=== PATIENT | male | born 1965 | race Caucasian/White ===

== ENCOUNTER 2021-12-03 18:40 | Emergency (ER) | payer SELFPAY ==
[~2021-12-03] VITALS: Ht 177.8 cm; Wt 74.0 kg
[2021-12-03] MEDS ORDERED: TETANUS, DIPHTHERIA, PERTUSSIS VAC/PF 0.5ML (>10YR OLD) IM ONE (19:15)
[2021-12-03] MEDS ORDERED: BACITRACIN ZINC OINT UDPKT TOP ONE (19:15)
[2021-12-03] MEDS ORDERED: LIDOCAINE HCL/EPINEPHRINE 1%-EPI 1:100,000 20 ML VIAL INFIL ONE (19:15)
[2021-12-03] MEDS ORDERED: IBUPROFEN 600MG TABLET PO ONE (19:15)
[2021-12-03] MEDS ORDERED: LIDOCAINE HCL/EPINEPHRINE 1%-EPI 1:100,000 30 ML VIAL INFIL NR (19:30)
[2021-12-03] MEDS ORDERED: IBUP-2028 MT (22:38)
[2021-12-03 23:10] VITALS: BP 138/84
== END 2021-12-03 23:35 | disposition home or self-care (01) ==
LOC: ER 18:40
DX: S01.01XA Laceration without foreign body of scalp, initial encounter (principal); S40.812A Abrasion of left upper arm, initial encounter; S50.311A Abrasion of right elbow, initial encounter; Y08.89XA Assault by other specified means, initial encounter; Y93.89 Activity, other specified; Y92.89 Other specified places as the place of occurrence of the external cause
CPT/HCPCS: 12002; 73030; 73060; 90471; 90715; 99284; J3490

== ENCOUNTER 2023-08-08 13:04 | Emergency (ER) | payer MEDICAID ==
[~2023-08-08] VITALS: Ht 162.6 cm; Wt 73.0 kg
[~2023-08-08 13:04] MED LIST: LEVO-65 MT
[2023-08-08 13:11] VITALS: O2SAT 97
[2023-08-08] MEDS: ACETAMINOPHEN 500MG TABLET PO ONE (13:30)
[2023-08-08 14:33] LABS: HEMATOCRIT 37.9 % (42.0-52.0); HEMOGLOBIN 12.7 g/dL (14.0-18.0); MEAN CORPUSCULAR HEMOGLOBIN 31.4 pg (28.0-32.0); MEAN CORPUSCULAR HGB CONC 33.5 g/dL (31.0-37.0); MEAN CORPUSCULAR VOLUME 93.6 fL (80.0-94.0); PLATELET 187 x1000/uL (130-400); RED BLOOD CELL COUNT 4.05 mill/uL (4.7-6.1); RED CELL DISTRIBUTION WIDTH 15.8 % (11.6-14.6)
[2023-08-08 14:34] LABS: CHLORIDE 103 mEq/L (98-107); POTASSIUM 3.6 mEq/L (3.5-5.1); SODIUM 134 mEq/L (136-145)
[2023-08-08 14:35] LABS: CALCIUM 8.7 mg/dL (8.7-10.4); CARBON DIOXIDE 25 mEq/L (21-32)
[2023-08-08 14:40] LABS: CREATININE 0.8 mg/dL (0.6-1.3); ETHANOL BLOOD 169 mg/dL (<10); GLUCOSE 90 mg/dL (70-105); UREA NITROGEN BLOOD 9 mg/dL (9-23)
[2023-08-08] MEDS ORDERED: ACETAMINOPHEN 500MG TABLET PO NR (15:45)
[2023-08-08] MEDS: KETOROLAC 30MG/ML VIAL IV SCH (17:00)
[2023-08-08] MEDS ORDERED: IBUP-2028 MT (17:03)
[2023-08-08 18:00] VITALS: BP 127/65; PULSE 89; RESP 17; TEMP 97.6
== END 2023-08-08 19:00 | disposition home or self-care (01) ==
LOC: ER 13:04
DX: M79.604 Pain in right leg (principal)
CPT/HCPCS: 80048; 80320; 85027; 36415; 73610; 73620; 70450; 71260; 72125; 74177; 96374; 99285; J1885; Z7610 ×2; G0480

== ENCOUNTER 2025-01-28 22:54 | Inpatient (IN) | payer MEDICAID ==
[~2025-01-28] VITALS: Ht 170.2 cm; Wt 61.7 kg
[~2025-01-28 22:54] MED LIST changes: +ALBU18HF2 IH; +APIX5TAB MT; +ASCO500C18 PO; +DOCU-138 PO; -LEVO-65 MT; +OLAN2.5T77 GT
[2025-01-28 23:02] VITALS: PULSE 105; RESP 25; O2SAT 95
[2025-01-28 23:12] VITALS: O2SAT 98
[2025-01-28] MEDS: SODIUM CHLORIDE 0.9% 1,000 ML IV ONE (23:28)
[2025-01-28] MEDS: PIPERACILLIN/TAZO 3.375G/50ML 50 ML IV ONE (23:28)
[2025-01-28] MEDS: ACETAMINOPHEN 325MG TABLET PEG ONE (23:28)
[2025-01-28 23:31] LABS: HEMATOCRIT. 34.6 % (42.0-52.0); HEMOGLOBIN. 11.0 g/dL (14.0-18.0); MEAN PLATELET VOLUME 9.3 fl (7.4-10.4); PLATELET 289 x1000/uL (130-400); RED BLOOD CELL COUNT 3.89 mill/uL (4.7-6.1); RED CELL DISTRIBUTION WIDTH 17.7 % (11.6-14.6)
[2025-01-28 23:41] LABS: INR 1.1
[2025-01-28 23:44] LABS: CREATININE 0.9 mg/dL (0.6-1.3); UREA NITROGEN BLOOD 51 mg/dL (9-23)
[2025-01-28 23:46] LABS: ASPARTATE AMINOTRANSFERASE 20 IU/L (<34); BILIRUBIN DIRECT 0.2 mg/dL (<=3.0); TROPONIN I HIGH SENSITIVITY 12 ng/L (3.0-53)
[2025-01-28 23:47] LABS: BILIRUBIN TOTAL 0.4 mg/dL (0.1-1.0); PROTEIN TOTAL 8.2 g/dL (6.0-8.3)
[2025-01-29] VITALS (19 sets, daily range): BP systolic 103–164; BP diastolic 61–83; PULSE 81–106; RESP 16–38; TEMP 36.3–38.1; O2SAT 96–100
[2025-01-29] MEDS: VANCOMYCIN 1G PREMIX 200 ML IV ONE (00:06)
[2025-01-29 00:22] LABS: CLARITY URINE CLOUDY (CLEAR); COLOR URINE YELLOW (YELLOW); GLUCOSE URINE NEGATIVE (NEGATIVE); KETONES URINE NEGATIVE (NEGATIVE); LEUKOCYTE ESTERASE URINE 2+ (NEGATIVE); NITRITE URINE POSITIVE (NEGATIVE); OCCULT BLOOD URINE 3+ (NEGATIVE); PH URINE 6.5 (4.5-8.0); PROTEIN URINE 1+ (NEGATIVE); SPECIFIC GRAVITY URINE 1.019 (1.005-1.030); UROBILINOGEN URINE 1.0 E.U./dL (0.2-1.0)
[2025-01-29] MEDS ORDERED: MIDODRINE HCL 5MG TABLET PO PRN ×2 (00:45→21:00)
[2025-01-29] MEDS ORDERED: ONDANSETRON HCL 4MG/2ML INJ IV PRN (00:45)
[2025-01-29] MEDS ORDERED: DEXTROSE 50% WATER 50ML SYRINGE IV PRN (00:45)
[2025-01-29] MEDS ORDERED: DOCUSATE SODIUM 100MG CAPSULE GT PRN (00:45)
[2025-01-29] MEDS ORDERED: BLOOD SUGAR DIAGNOSTIC STRIP TEST SCH (00:45)
[2025-01-29] MEDS ORDERED: MIDO5TAB4 MT (04:01)
[2025-01-29] MEDS ORDERED: TOPUD PO (04:01)
[2025-01-29 05:06] LABS: BAND% 1.0 % (1.0-6.0); LYMPHOCYTES % MANUAL 10.0 % (20.0-50.0); MONOCYTES % MANUAL 4.0 % (2.0-8.0); NEUTROPHILS % MANUAL 85.0 % (45.0-75.0); PLATELET ESTIMATE NORMAL
[2025-01-29 05:45] LABS: SQUAMOUS EPITHELIAL CELL URINE FEW /lpf (RARE/1+)
[2025-01-29 05:46] LABS: RBC URINE TNTC /hpf (0-2)
[2025-01-29 05:47] LABS: BACTERIA URINE 2+
[2025-01-29] MEDS: PIPERACILLIN/TAZO 3.375G/50ML 50 ML IV SCH (06:03)
[2025-01-29] MEDS: ACETAMINOPHEN 650MG/20.3ML UDC GT PRN (06:04)
[2025-01-29] MEDS ORDERED: GUAIFENESIN-DM 200MG-20MG/10ML UDC GT SCH (06:15)
[2025-01-29] MEDS: BLOOD SUGAR DIAGNOSTIC STRIP TEST SCH (07:45)
[2025-01-29 07:47] LABS: BASOPHILS % 0.2 % (0.0-2.0); EOSINOPHILS % 0.4 % (0.0-5.0); HEMATOCRIT. 32.1 % (42.0-52.0); HEMOGLOBIN. 10.0 g/dL (14.0-18.0); LYMPHOCYTES % 10.1 % (20.0-50.0); MEAN PLATELET VOLUME 9.1 fl (7.4-10.4); MONOCYTES % 6.1 % (2.0-8.0); NEUTROPHILS % 83.2 % (40.0-76.0); PLATELET 246 x1000/uL (130-400); RED BLOOD CELL COUNT 3.59 mill/uL (4.7-6.1); RED CELL DISTRIBUTION WIDTH 17.6 % (11.6-14.6)
[2025-01-29 07:59] LABS: CREATINE KINASE MB FRACTION 1.2 ng/mL (0.5-3.6); CREATININE 0.7 mg/dL (0.6-1.3); TRIGLYCERIDE 34 mg/dL (0-150); UREA NITROGEN BLOOD 38 mg/dL (9-23)
[2025-01-29 08:00] LABS: ASPARTATE AMINOTRANSFERASE 18 IU/L (<34); LDL CHOLESTEROL 41 mg/dL (5-100)
[2025-01-29] MEDS: MIDODRINE HCL 5MG TABLET PO SCH (08:00)
[2025-01-29] MEDS: INSULIN LISPRO 100 UNITS/ML SUBCUT SCH (08:00)
[2025-01-29 08:01] LABS: BILIRUBIN TOTAL 0.5 mg/dL (0.1-1.0); PHOSPHORUS 2.7 mg/dL (2.5-4.9); PROTEIN TOTAL 7.6 g/dL (6.0-8.3)
[2025-01-29 08:09] LABS: TROPONIN I HIGH SENSITIVITY 8 ng/L (3.0-53)
[2025-01-29 08:13] LABS: T4 FREE 1.12 ng/dL (0.89-1.76)
[2025-01-29] MEDS: IPRATROPIUM/ALBUTEROL 0.5-3(2.5)MG/3ML NEB HHN PRN (08:22)
[2025-01-29] MEDS: PANTOPRAZOLE SODIUM 40 MG/VIAL IV SCH (08:39)
[2025-01-29] MEDS: VANCOMYCIN 1GM/200ML PMX (BAXTER) IV SCH (08:40)
[2025-01-29] MEDS: GUAIFENESIN-DM 200MG-20MG/10ML UDC GT SCH (08:40)
[2025-01-29] MEDS: AZITHROMYCIN 500MG/250ML 250 ML IV SCH (08:40)
[2025-01-29] MEDS: ENOXAPARIN 40MG/0.4ML SYR SUBCUT SCH (08:42)
[2025-01-29] MEDS: ACETYLCYSTEINE 200MG/ML 20% VIAL 4ML INH SCH (13:11)
[2025-01-29 16:24] LABS: TROPONIN I HIGH SENSITIVITY 8 ng/L (3.0-53)
[2025-01-29 16:27] LABS: CREATINE KINASE MB FRACTION 0.9 ng/mL (0.5-3.6)
[2025-01-30] VITALS (25 sets, daily range): BP systolic 95–154; BP diastolic 54–94; PULSE 77–109; RESP 20–33; TEMP 36–37.1; O2SAT 95–100
[2025-01-30 07:58] LABS: CREATININE 0.6 mg/dL (0.6-1.3); UREA NITROGEN BLOOD 20 mg/dL (9-23)
[2025-01-30 09:53] LABS: BG BASE EXCESS 3.0 mmol/L (-2.0-3.0); BG CARBOXYHEMOGLOBIN 0.3 % (0.5-1.5); BG DEOXYHEMOGLOBIN 0.9 % (0.0-5.0); BG FRACTION INSPIRED OXYGEN 40; BG HCO3 ACT 26.1 mmol/L (21.0-28.0); BG METHEMOGLOBIN 0.1 % (0.5-1.5); BG OXYGEN SATURATION 99.1 % (94.0-98.0); BG OXYHEMOGLOBIN 98.7 % (94.0-98.0); BG PCO2 34.4 mmHg (35.0-48.0); BG PEEP (cmH2O) 5.0 cmH2O; BG PH 7.498 (7.350-7.450); BG PO2 147.2 mmHg (83.0-108.0); BG SAMPLE SITE RIGHT RADIAL; BG TIDAL VOLUME(mL) 450.0 mL; BG TOTAL HEMOGLOBIN 10.2 g/dL (13.5-17.5); BG VENT MODE VENT - SIMV; BG VENT RATE 16.0 set
[2025-01-30 12:55] LABS: BASOPHILS % 0.2 % (0.0-2.0); CREATININE 0.6 mg/dL (0.6-1.3); EOSINOPHILS % 2.1 % (0.0-5.0); HEMATOCRIT. 28.6 % (42.0-52.0); HEMOGLOBIN. 9.2 g/dL (14.0-18.0); LYMPHOCYTES % 15.5 % (20.0-50.0); MEAN PLATELET VOLUME 9.9 fl (7.4-10.4); MONOCYTES % 11.2 % (2.0-8.0); NEUTROPHILS % 71.0 % (40.0-76.0); PLATELET 213 x1000/uL (130-400); RED BLOOD CELL COUNT 3.21 mill/uL (4.7-6.1); RED CELL DISTRIBUTION WIDTH 16.7 % (11.6-14.6); UREA NITROGEN BLOOD 21 mg/dL (9-23)
[2025-01-30 12:57] LABS: ASPARTATE AMINOTRANSFERASE 22 IU/L (<34); BILIRUBIN DIRECT 0.1 mg/dL (<=3.0); BILIRUBIN TOTAL 0.3 mg/dL (0.1-1.0); PHOSPHORUS 2.2 mg/dL (2.5-4.9); PROTEIN TOTAL 7.1 g/dL (6.0-8.3)
[2025-01-30 13:00] LABS: INR 1.1
[2025-01-30] MEDS: FERROUS SULFATE 325MG TABLET PO SCH (14:06)
[2025-01-30] MEDS: VANCOMYCIN 750MG/150ML (BAXTER) IV SCH (14:06)
[2025-01-30] MEDS: MIDODRINE HCL 5MG TABLET PO PRN (14:06)
[2025-01-30] MEDS: ATORVASTATIN CALCIUM 40MG TABLET PO SCH (22:37)
[2025-01-31] VITALS (17 sets, daily range): BP systolic 84–119; BP diastolic 63–79; PULSE 67–115; RESP 16–63; TEMP 36.7–38.1; O2SAT 95–100
[2025-01-31] MEDS ORDERED: IOHEXOL-350 100 ML BOTTLE ONE (05:05)
[2025-01-31 06:20] LABS: VITAMIN B12 SERUM 1201 pg/mL (211-911)
[2025-01-31 06:23] LABS: CREATININE 0.6 mg/dL (0.6-1.3)
[2025-01-31 06:24] LABS: UREA NITROGEN BLOOD 16 mg/dL (9-23)
[2025-01-31 06:36] LABS: BASOPHILS % 0.3 % (0.0-2.0); EOSINOPHILS % 1.2 % (0.0-5.0); HEMATOCRIT. 29.5 % (42.0-52.0); HEMOGLOBIN. 9.5 g/dL (14.0-18.0); LYMPHOCYTES % 15.0 % (20.0-50.0); MEAN PLATELET VOLUME 10.0 fl (7.4-10.4); MONOCYTES % 10.0 % (2.0-8.0); NEUTROPHILS % 73.5 % (40.0-76.0); PLATELET 194 x1000/uL (130-400); RED BLOOD CELL COUNT 3.32 mill/uL (4.7-6.1); RED CELL DISTRIBUTION WIDTH 17.1 % (11.6-14.6)
[2025-01-31 06:56] LABS: FOLIC ACID (FOLATE) SERUM 34.14 ng/mL (>5.38)
[2025-02-01] VITALS (23 sets, daily range): BP systolic 99–126; BP diastolic 73–87; PULSE 75–97; RESP 17–41; TEMP 36.5–37.6; O2SAT 92–100
[2025-02-01] MEDS: TOBRAMYCIN SULFATE 40MG/ML 2ML INH SCH (00:34)
[2025-02-01] MEDS: SODIUM CHLORIDE 0.9% FOR INH 3ML VIAL NEB INH SCH (02:46)
[2025-02-01 06:42] LABS: BASOPHILS % 0.4 % (0.0-2.0); EOSINOPHILS % 3.7 % (0.0-5.0); HEMATOCRIT. 29.1 % (42.0-52.0); HEMOGLOBIN. 9.6 g/dL (14.0-18.0); LYMPHOCYTES % 19.8 % (20.0-50.0); MEAN PLATELET VOLUME 9.5 fl (7.4-10.4); MONOCYTES % 9.6 % (2.0-8.0); NEUTROPHILS % 66.5 % (40.0-76.0); PLATELET 213 x1000/uL (130-400); RED BLOOD CELL COUNT 3.29 mill/uL (4.7-6.1); RED CELL DISTRIBUTION WIDTH 16.5 % (11.6-14.6)
[2025-02-01 06:44] LABS: CREATININE 0.6 mg/dL (0.6-1.3)
[2025-02-01 06:46] LABS: UREA NITROGEN BLOOD 15 mg/dL (9-23)
[2025-02-02] VITALS (19 sets, daily range): BP systolic 107–125; BP diastolic 76–85; PULSE 81–98; RESP 16–29; TEMP 36.7–37.7; O2SAT 93–100
[2025-02-02 08:18] LABS: CREATINE KINASE MB FRACTION < 0.5 ng/mL (0.5-3.6)
[2025-02-02 08:21] LABS: CREATININE 0.6 mg/dL (0.6-1.3)
[2025-02-02 08:22] LABS: UREA NITROGEN BLOOD 15 mg/dL (9-23)
[2025-02-02 08:53] LABS: BASOPHILS % 0.6 % (0.0-2.0); EOSINOPHILS % 4.6 % (0.0-5.0); HEMATOCRIT. 29.8 % (42.0-52.0); HEMOGLOBIN. 9.5 g/dL (14.0-18.0); LYMPHOCYTES % 25.0 % (20.0-50.0); MEAN PLATELET VOLUME 10.1 fl (7.4-10.4); MONOCYTES % 9.4 % (2.0-8.0); NEUTROPHILS % 60.4 % (40.0-76.0); PLATELET 274 x1000/uL (130-400); RED BLOOD CELL COUNT 3.35 mill/uL (4.7-6.1); RED CELL DISTRIBUTION WIDTH 16.6 % (11.6-14.6)
[2025-02-02] MEDS ORDERED: LIP40 PO (10:33)
[2025-02-02] MEDS ORDERED: TOBR40VI2 INH (10:33)
[2025-02-02] MEDS ORDERED: FERR325T6 MT (10:33)
[2025-02-02] MEDS ORDERED: RDML10 GT (10:33)
[2025-02-03] VITALS (18 sets, daily range): BP systolic 112–128; BP diastolic 78–95; PULSE 86–122; RESP 18–32; TEMP 37–38.1; O2SAT 93–100
[2025-02-03] MEDS: PIPERACILLIN/TAZO 3.375G/50ML 50 ML IV SCH (10:07)
[2025-02-03] MEDS: ACETAMINOPHEN 650MG/20.3ML UDC GT PRN (13:05)
== END 2025-02-03 16:53 | DRG 720 ==
LOC: ER 22:54 → 5EST 01-29 00:33 → EDBEDREQ 01-29 00:41 → EDBEDREQTM 01-29 00:41 → EDBEDREQDT 01-29 00:41 → ENRESERV 01-29 00:50
PROVIDERS: ADMIT Hospitalist; ATTEND Family Medicine Adult Medicine
PROC: 5A1955Z Respiratory Ventilation, Greater than 96 Consecutive Hours (ICD-10-PCS; principal; 2025-01-29)
DX: A41.89 Other specified sepsis (principal); J96.21 Acute and chronic respiratory failure with hypoxia; G93.49 Other encephalopathy; Z99.11 Dependence on respirator [ventilator] status; J15.69 Pneumonia due to other Gram-negative bacteria; R53.2 Functional quadriplegia; J44.0 Chronic obstructive pulmonary disease with (acute) lower respiratory infection; N39.0 Urinary tract infection, site not specified; Z93.0 Tracheostomy status; E11.649 Type 2 diabetes mellitus with hypoglycemia without coma; D64.9 Anemia, unspecified; I10 Essential (primary) hypertension; R13.10 Dysphagia, unspecified; R79.89 Other specified abnormal findings of blood chemistry; Z86.711 Personal history of pulmonary embolism; E61.1 Iron deficiency; Z93.1 Gastrostomy status; Z86.73 Personal history of transient ischemic attack (TIA), and cerebral infarction without residual deficits
CPT/HCPCS: 31720; 36415; 36600; 71045; 71275; 80048; 80053; 80061; 80076; 80202; 81003; 82375; 82550; 82553; 82607; 82728; 82746; 82805; 82962; 83036; 83540; 83550; 83605; 83735; 83880; 83930; 84100; 84145; 84439; 84443; 84484; 85025; 85379; 86850; 86900; 87070; 87077; 87186; 93005; 93970; 94002; 94003; 94070; 94640; 94664; 94667; 96365; 97161; 98960; 99291; A4606; J0456; J1650; J2470; J2543; J3260; J3373; J7030; J7608; Q9967